=== PATIENT | female | born 1980 | race Caucasian/White ===

== ENCOUNTER 2018-11-29 17:15 | Emergency (ER) | payer SELFPAY ==
[2018-11-29 17:24] VITALS: O2SAT 98
[2018-11-29] MEDS ORDERED: Sodium Chloride 0.9% 1,000 ML IV ONE (17:27)
--- NOTE | 2018-11-29 17:34 | C.PDOC ---
History Of Present Illness Patient is a 38 yr old female who was found unresponsive in a bathroom basement due to a heroin overdose. EMS states that a male friend told EMS that she went to the bathroom and then the friend found the patient unresponsive. EMS did have to ventilate the patient via bag-valve mask for a couple of minutes. EMS gave patient 1.2 mg IV narcan and then the patient become responsive and she told EMS that she injected heroin for the first time. Patient also states she was drinking alcohol today. Patient denies any other drug abuse. Patient states that she does not remember what happened. Patient is yelling at nurse that she wants her IV removed because it is hurting her. No other complaints at this time. PMD: None Time Seen by Provider: 11/29/18 17:26 Chief Complaint (Nursing): Substance Abuse Onset/Duration Of Symptoms: Mins Past Medical History Reviewed: Historical Data, Nursing Documentation, Vital Signs Vital Signs: Last Vital Signs Temp Pulse 81 11/29/18 17:17 Resp 16 11/29/18 17:17 BP 86/53 L 11/29/18 17:17 Pulse Ox 98 11/29/18 17:17 - Medical History PMH: No Chronic Diseases Other PMH: Thryoid disease Family History: States: No Known Family Hx - Social History Hx Tobacco Use: Yes Hx Alcohol Use: Yes Hx Substance Use: Yes (injects heroin) Review Of Systems Except As Marked, All Systems Reviewed And Found Negative. Constitutional: Negative for: Fever Cardiovascular: Negative for: Chest Pain Respiratory: Negative for: Shortness of Breath Gastrointestinal: Negative for: Vomiting Physical Exam - Physical Exam Appears: Well, Non-toxic, No Acute Distress, Other (patient is shivering--likely withdrawal from narcan) Head: Atraumatic Eye(s): bilateral: PERRL (at 4mm each s/p narcan), EOMI Ear(s): Bilateral: Normal Nose: Normal Oral Mucosa: Moist Tongue: Normal Appearing Lips: Normal Appearing Teeth: Normal Dentition Gingiva: Normal Appearing Throat: Normal Neck: Normal ROM Lymphatic: Deferred Chest: Symmetrical Cardiovascular: Rhythm Regular Respiratory: Normal Breath Sounds, No Rales, No Rhonchi, No Wheezing Gastrointestinal/Abdominal: Normal Exam, Bowel Sounds, Soft, No Tenderness Rectal: Deferred Extremity: Normal ROM Extremity: Bilateral: Atraumatic, Normal ROM Pulses: Left Radial: Normal, Right Radial: Normal Neurological/Psych: Oriented x3, Normal Motor, Normal Sensation, Other (Normal gait, no ataxia) ED Course And Treatment O2 Sat by Pulse Oximetry: 98 Medical Decision Making Medical Decision Making: Initial Impression: Heroin Overdose s/p rescue with Narcan Initial Plan: Will observe. Patient's IV was removed from her hand because she states it was hurting her but is currently refusing to let nurse insert another IV. Progress note: 6:13 PM - Patient wants to leave AMA. Pt refuses to sign AMA form. Pt states cousin will pick her up and then she walked out of the ED. Pt was A&O x 3 and articulated understanding of consequences when leaving AMA--including respiratory arrest when Narcan wears off--and patient states she will assume those risks. Disposition - Disposition Disposition: AGAINST MEDICAL ADVICE Disposition Time: 18:12 Condition: IMPROVED - POA Present On Arrival: None - Clinical Impression Clinical Impression: Heroin overdose
[2018-11-29 17:41] VITALS: BP 102/68; PULSE 80; RESP 13
== END 2018-11-29 18:15 | disposition left against medical advice (07) ==
LOC: C.ER 17:15 → MERGE 17:15 → C.ER 18:15
DX: T40.1X1A Poisoning by heroin, accidental (unintentional), initial encounter (principal); Y92.89 Other specified places as the place of occurrence of the external cause